=== PATIENT | male | born 1965 | race Caucasian/White ===

== ENCOUNTER 2020-07-26 12:11 | Emergency (ER) | payer OTHER ==
[2020-07-26 12:30] VITALS: BP 148/80; PULSE 59
[2020-07-26] MEDS ORDERED: Ketorolac 60 MG/2 ML SDV IM ONE (12:40)
--- NOTE | 2020-07-26 12:42 | EDM.PDOC ---
ED HPI GENERAL MEDICAL PROBLEM - General Chief Complaint: Laceration Stated Complaint: CUT LEFT INDEX FINGER Time Seen by Provider: 07/26/20 12:38 Source of Information: Reports: Patient, RN Notes Reviewed History Limitations: Reports: No Limitations - History of Present Illness INITIAL COMMENTS - FREE TEXT/NARRATIVE: 55-year-old gentleman presents emergency department day with tablesaw injury to his index finger on his left hand he accidentally reached over the top of the blade with a gloved hand. Bleeding is controlled by the time he arrives emergency department . Left Finger-Index Pain Score (Numeric/FACES): 4 - Related Data Allergies Allergy/AdvReac Type Severity Reaction Status Date / Time lisinopril Allergy Hypertensio Verified 12/24/15 07:56 n Home Meds: Home Meds Pantoprazole [Protonix] 40 mg PO DAILY 11/15/14 [History] Acyclovir [Zovirax] 400 mg PO TID PRN 12/20/15 [History] Cetirizine HCl [Zyrtec] 10 mg PO DAILY PRN 12/20/15 [History] Melatonin 10 mg PO BEDTIME 12/20/15 [History] Multivit-Min/FA/Lycopen/Lutein [Centrum Silver Ultra Men's] 1 each PO DAILY 12/20/15 [History] Capac-3S/DHA/Epa/Fish Oil [Capac-3 Fish Oil 1,200 mg Sfgl] 1 each PO DAILY 12/20/15 [History] Metoprolol Succinate [Toprol XL] 12.5 mg PO DAILY 07/26/20 [History] Past Medical History HEENT History: Reports: Allergic Rhinitis, Impaired Vision Cardiovascular History: Reports: Hypertension Gastrointestinal History: Reports: Gastritis, GERD, Helicobacter Pylori Genitourinary History: Reports: Renal Calculus Musculoskeletal History: Reports: Arthritis, Back Pain, Chronic, Fracture - Infectious Disease History Infectious Disease History: Reports: C-Difficile, Measles, Mumps - Past Surgical History Head Surgeries/Procedures: Reports: None HEENT Surgical History: Reports: None Cardiovascular Surgical History: Reports: None GI Surgical History: Reports: EGD Male Surgical History: Reports: Renal Calculus Other Male Surgeries/Procedures: stone removed through urethral Musculoskeletal Surgical History: Reports: Shoulder Surgery Other Musculoskeletal Surgeries/Procedures:: plate in left shoulder Dermatological Surgical History: Reports: None Social & Family History - Tobacco Use Tobacco Use Status *Q: Never Tobacco User Second Hand Smoke Exposure: No - Caffeine Use Caffeine Use: Reports: Coffee, Energy Drinks - Recreational Drug Use Recreational Drug Use: No ED ROS GENERAL - Review of Systems Review Of Systems: See Below Musculoskeletal: Reports: Hand Pain Skin: Reports: Wound ED EXAM, SKIN/RASH Exam: See Below Text/Narrative:: Examination of the left hand digits two distal tip a large portion of the palmar surface has been removed due to trauma radial pulses +2 full range of motion of all digits Exam Limited By: No Limitations General Appearance: Alert, WD/WN, No Apparent Distress Respiratory/Chest: No Respiratory Distress ED SKIN PROCEDURES - Laceration/Wound Repair Left Digit - 1st (Thumb) Appearance: Irregular, Mildly Contaminated Distal NVT: Neuro & Vascular Intact, No Tendon Injury Anesthetic Type: Digital Local Anesthesia - Lidocaine (Xylocaine): 1% Plain Local Anesthetic Volume: 2cc Skin Prep: Saline Saline Irrigation (cc's): 500 Exploration/Debridement/Repair: Wound Explored, In a Bloodless Field, Explored to Base Closed with: Sutures Lac/Wound length In cm: 2 Suture Size: 4-0 # of Sutures: 3 Suture Type: Prolene, Interrupted Sterile Dressing Applied: Nurse Tetanus Status Addressed: Yes Complications: No Course - Vital Signs Last Recorded V/S: Last Vital Signs Temp 97.1 F 07/26/20 12:29 Pulse 59 L 07/26/20 12:29 Resp 16 07/26/20 12:29 BP 148/80 H 07/26/20 12:29 Pulse Ox 96 07/26/20 12:29 - Orders/Labs/Meds Orders: Active Orders 24 hr Category Date Time Status Fingers Second Digit Lt F1 [CR] Stat Exams 07/26/20 12:38 Taken Meds: Medications Discontinued Medications Generic Name Dose Route Start Last Admin Trade Name Freq PRN Reason Stop Dose Admin Bacitracin 1 dose 07/26/20 13:47 07/26/20 13:52 Bacitracin Oint 1 Gm TOP 07/26/20 13:48 1 dose ONETIME ONE Administration Cefazolin Sodium 1 gm 07/26/20 13:54 Ancef IM 07/26/20 13:55 ONETIME ONE Ketorolac Tromethamine 60 mg 07/26/20 12:40 07/26/20 12:46 Toradol IM 07/26/20 12:41 60 mg ONETIME ONE Administration Lidocaine HCl 5 ml 07/26/20 13:47 07/26/20 13:52 Xylocaine-Mpf 1% INJECT 07/26/20 13:48 5 ml ONETIME ONE Administration Departure - Departure Time of Disposition: 14:26 Disposition: Home, Self-Care 01 Condition: Fair Clinical Impression: Traumatic amputation of hand through metacarpal bone Qualifiers: Encounter type: initial encounter Laterality: left Qualified Code(s): S68.712A - Complete traumatic transmetacarpal amputation of left hand, initial encounter Laceration of left index finger Qualifiers: Encounter type: initial encounter Damage to nail status: with damage Foreign body presence: without foreign body Qualified Code(s): S61.311A - Laceration without foreign body of left index finger with damage to nail, initial encounter - Discharge Information Instructions: Laceration Care, Adult Referrals: Robert Ang MD [Primary Care Provider] - Forms: ED Department Discharge Additional Instructions: The orthopedic clinic will call you for follow-up appointment Sepsis Event Note (ED) - Evaluation Sepsis Screening Result: No Definite Risk - Focused Exam Vital Signs: Vital Signs Temp Pulse Resp BP Pulse Ox 07/26/20 12:29 97.1 F 59 L 16 148/80 H 96 - My Orders Last 24 Hours: My Active Orders 07/26/20 12:38 Fingers Second Digit Lt F1 [CR] Stat - Assessment/Plan Last 24 Hours: My Active Orders 07/26/20 12:38 Fingers Second Digit Lt F1 [CR] Stat Plan: Assessment Acuity = acute Site and laterality = laceration injury digit #2 left hand partial amputation of the distal phalange bone Etiology = trauma table saw Manifestations = none Location of injury = Home Lab values = x-rays described injury above Plan He will follow-up with orthopedics next week, given 1 g Ancef now placed on Keflex 500 mg p.o. 3 times daily as needed hydrocodone 5/325 1 tab p.o. 3 times daily as needed for pain #6 Please note the clinical impression says metacarpal bone this is the distal phalanges there was no choice in the ICD 10 list for distal phalanges This note was dictated using [employer] voice recognition software please call with any questions on syntax or grammar.
[2020-07-26] MEDS ORDERED: Bacitracin Oint 1 GM U/D Packet TOP ONE (13:47)
[2020-07-26] MEDS ORDERED: ceFAZolin 1 GM Vial IM ONE (13:54)
--- NOTE | 2020-07-26 15:39 | CR ---
Fingers Second Digit Lt F1 CLINICAL HISTORY: Table saw injury FINDINGS: There is a laceration of the distal second digit. There is a moderate-sized defect in the palmar surface of the distal phalanx IMPRESSION: Willson bony defect and soft tissue injury from table saw
== END 2020-07-26 14:50 | disposition home or self-care (01) ==
LOC: JP.ED 12:11
DX: S68.621A Partial traumatic transphalangeal amputation of left index finger, initial encounter (principal); I10 Essential (primary) hypertension; K21.9 Gastro-esophageal reflux disease without esophagitis; Z88.8 Allergy status to other drugs, medicaments and biological substances; Z79.899 Other long term (current) drug therapy; W31.2XXA Contact with powered woodworking and forming machines, initial encounter
CPT/HCPCS: 12001; 73140; 96372; 99283; J0690; J1885

== ENCOUNTER 2024-08-03 06:29 | Day surgery (SDC) | payer OTHER ==
[2024-08-03] MEDS ORDERED: Midazolam 1 MG/ML 2 ML SDV ONE (06:50)
[2024-08-03] MEDS ORDERED: Propofol 200 MG/20 ML SDV ONE (06:50)
[2024-08-03] MEDS ORDERED: fentaNYL 100 MCG/2 ML SDV ONE (06:50)
[2024-08-03] MEDS: Lactated Ringers 1,000 ML IV SCH (07:24)
[2024-08-03 09:18] VITALS: BP 160/99; PULSE 64
== END 2024-08-03 09:30 | disposition home or self-care (01) ==
LOC: JP.SDS 06:29
PROVIDERS: ATTEND Surgery
DX: Z12.11 Encounter for screening for malignant neoplasm of colon (principal); I10 Essential (primary) hypertension
CPT/HCPCS: 45378; J2250; J2704; J3010; J7120; 00812-QZ

== ENCOUNTER 2025-02-02 15:59 | Emergency (ER) | payer OTHER ==
[2025-02-02 16:41] VITALS: BP 138/97; PULSE 59
== END 2025-02-02 17:46 | disposition home or self-care (01) ==
LOC: JP.ED 15:59
DX: S61.512A Laceration without foreign body of left wrist, initial encounter (principal); I10 Essential (primary) hypertension; Z79.899 Other long term (current) drug therapy; Z88.8 Allergy status to other drugs, medicaments and biological substances; W26.0XXA Contact with knife, initial encounter
CPT/HCPCS: 12002; 99282; 99283; J2003